=== PATIENT | male | born 1995 | race Caucasian/White ===

== ENCOUNTER 2025-01-31 14:54 | Emergency (ER) | payer OTHER, SELFPAY ==
[2025-01-31] MEDS ORDERED: Lidocaine 1% (PF) 30 ML VIAL ONE (15:21)
[2025-01-31] MEDS ORDERED: Boostrix 0.5 ML (Tdap) VIAL (>/=7 yrs of age) ONE (15:21)
[2025-01-31] MEDS ORDERED: Bacitracin 1 PK ONE (15:21)
== END 2025-01-31 15:55 | disposition home or self-care (01) ==
LOC: NAV ERS 14:54
DX: S61.215A Laceration without foreign body of left ring finger without damage to nail, initial encounter (principal); Z23 Encounter for immunization; W23.0XXA Caught, crushed, jammed, or pinched between moving objects, initial encounter
CPT/HCPCS: 12001; 90471; 90715; J2003